=== PATIENT | female | born 1980 | race African-American/Black ===

== ENCOUNTER 2016-09-22 16:26 | Emergency (ER) | payer MEDICAID ==
[2016-09-22] MEDS ORDERED: predniSONE 20 MG TABLET PO STA (16:41)
[2016-09-22] MEDS ORDERED: HYDROcod/ACETAM 5/325 MG TABLET PO STA (16:41)
[2016-09-22] MEDS ORDERED: HYDROcod/ACETAM 5/325 MG TABLET ONE (16:44)
[2016-09-22] MEDS ORDERED: predniSONE 20 MG TABLET ONE (16:44)
== END 2016-09-22 16:54 | disposition home or self-care (01) ==
DX: M54.41 Lumbago with sciatica, right side (principal); M48.06 Spinal stenosis, lumbar region; R03.0 Elevated blood-pressure reading, without diagnosis of hypertension; M79.7 Fibromyalgia
CPT/HCPCS: 99283; A9270; J7512

== ENCOUNTER 2017-03-23 20:50 | Emergency (ER) | payer SELFPAY ==
[2017-03-23] MEDS ORDERED: HYDROmorphone 1 MG/ML SYRINGE IM STA (21:21)
[2017-03-23] MEDS ORDERED: DEXAMETHASONE 10 MG/ML VIAL PO STA (21:22)
[2017-03-23] MEDS ORDERED: diazePAM INJ 5 MG/ML SYRINGE IM STA (21:22)
[2017-03-23] MEDS ORDERED: HYDROmorphone 1 MG/ML SYRINGE ONE (21:32)
[2017-03-23] MEDS ORDERED: DEXAMETHASONE 10 MG/ML VIAL ONE (21:33)
[2017-03-23] MEDS ORDERED: CHERRY SYRUP 10 ML UDC PO ONE (21:33)
[2017-03-23] MEDS ORDERED: diazePAM INJ 5 MG/ML SYRINGE ONE (21:33)
--- NOTE | 2017-03-23 21:34 | ED Physician Documentation ---
PD HPI BACK PAIN - Stated complaint Stated Complaint: NECK/BACK PX - Chief complaint Chief Complaint: Back Pain - History obtained from History obtained from: Patient, Family - History of Present Illness Timing - onset: Chronic (worse for the past several days) Timing - duration: Years Timing - details: Gradual onset Pain level max: 9 Pain level now: 9 Location: Mid, Lower, Right, Left Quality: Pain, Spasm, Similar to prior episodes Associated symptoms: No: Fever, Weakness, Numbness, Incontinent of urine, Unable to urinate, Hematuria, Incontinent of stool Improves with: Rest Worsened by: Movement Contributing factors: No: Lifting, Twisting, Trauma, Anticoagulated, Cancer, IVDA Similar symptoms before: Diagnosis (spinal stenosis, bulging discs) Recently seen: Not recently seen Review of Systems Constitutional: denies: Fever, Chills Nose: denies: Rhinorrhea / runny nose, Congestion Throat: denies: Sore throat Cardiac: denies: Chest pain / pressure Respiratory: denies: Cough GI: denies: Abdominal Pain, Nausea, Vomiting, Diarrhea : denies: Dysuria, Frequency, Hesitancy Skin: denies: Rash Musculoskeletal: denies: Neck pain Neurologic: denies: Focal weakness, Numbness, Confused, Altered mental status, Headache PD PAST MEDICAL HISTORY - Past Medical History Past Medical History: Yes Cardiovascular: None Respiratory: Asthma Neuro: Headache/migraine Endocrine/Autoimmune: None GI: None 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 : None HEENT: Chronic sinusitis Psych: Anxiety Musculoskeletal: Fibromyalgia, Chronic back pain Derm: None - Past Surgical History Past Surgical History: Yes General: Appendectomy /PLATEMAKER: Tubal ligation, Hysterectomy - Present Medications Home Medications: Ambulatory Orders Medication Instructions Recorded Confirmed Cyclobenzaprine [Flexeril] 10 mg PO .FREQ PRN 09/22/16 03/23/17 Ibuprofen [Motrin] 800 mg PO .FREQ 09/22/16 03/23/17 Oxycodone HCl/Acetaminophen 1 - 2 each PO Q6H PRN #14 tablet 03/23/17 [Percocet 5-325 mg Tablet] Pregabalin [Lyrica] 75 mg PO BID #30 capsule 03/23/17 diazePAM [Valium] 5 - 10 mg PO TID PRN #15 tablet 03/23/17 - Allergies Allergies/Adverse Reactions: Allergies Allergy/AdvReac Type Severity Reaction Status Date / Time Sulfa (Sulfonamide Allergy Intermediate Rash Verified 03/23/17 20:56 Antibiotics) doxycycline AdvReac Intermediate other Verified 03/23/17 20:56 - Social History Does the pt smoke?: No Smoking Status: Never smoker Does the pt drink ETOH?: Yes Does the pt have substance abuse?: Yes Substance Use and Type: Marijuana - Immunizations Immunizations are current?: Yes - POLST Patient has POLST: No PD ED PE NORMAL - Vitals Vital signs reviewed: Yes - General General: Alert and oriented X 3, No acute distress, Well developed/nourished - HEENT HEENT: Atraumatic, PERRL, Ears normal, Moist mucous membranes, Pharynx benign - Neck Neck: Supple, no meningeal sign, No bony TTP - Cardiac Cardiac: RRR, Strong equal pulses - Respiratory Respiratory: No respiratory distress, Clear bilaterally - Back Back: No CVA TTP, Other (Diffuse paraspinal muscle spasm. No midline tenderness to palpation or percussion.) - Derm Derm: Warm and dry, No rash - Extremities Extremities: Other (normal bilateral lower extremity patellar and ankle jerk reflexes. 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, No motor deficit, No sensory deficit, Normal speech - Psych Psych: Normal mood, Normal affect Results - Vitals Vitals: Vital Signs - 24 hr 03/23/17 03/23/17 03/23/17 20:52 21:57 22:38 Temperature 36.8 C Heart Rate 89 96 84 Respiratory 18 20 18 Rate Blood Pressure 124/74 116/68 O2 Saturation 98 99 96 Oxygen O2 Source Room air PD MEDICAL DECISION MAKING - ED course Complexity details: reviewed results, re-evaluated patient, considered differential (no cauda equina, no spinal epidural abscess, no fracture, no aortic dissection or evidence of aneursym rupture), d/w patient, d/w family ED course: Patient is a 36-year-old female who presents to the emergency department with acute on chronic back pain. Pain is well controlled in the emergency department and she feels much better. She does have a history of fibromyalgia as well and will trial her on Lyrica to see if this helps her pain. She is very well-appearing, nontoxic. Afebrile. No evidence of cauda equina, epidural abscess or fracture. We will trial him a small amount of pain medication and muscle relaxants for home as well. Patient counseled regarding signs and symptoms for which I believe and urgent re-evaluation would be necessary. Patient with good understanding of and agreement to plan and is comfortable going home at this time This document was made in part using voice recognition software. While efforts are made to proofread this document, sound alike and grammatical errors may occur. Departure - Departure Disposition: Home, Self Care Clinical Impression: Back pain Qualifiers: Back pain location: back pain in unspecified location Chronicity: chronic Back pain laterality: bilateral Qualified Code(s): M54.9 - Dorsalgia, unspecified Condition: Good Instructions: ED Back Care Tips, ED Neck Back Pain General Follow-Up: Nicole Erickson MD [Primary Care Provider] - Within 1 week Prescriptions: Pregabalin [Lyrica] 75 mg PO BID #30 capsule Oxycodone HCl/Acetaminophen [Percocet 5-325 mg Tablet] 1 - 2 each PO Q6H PRN # 14 tablet PRN Reason: pain diazePAM [Valium] 5 - 10 mg PO TID PRN #15 tablet PRN Reason: Spasms Comments: You may want to talk to your doctor about a referral to a flexographic printing machinist who may be able to help with your back pain. Return if you worsen. The lyrica should be titrated up with your doctor after a week or two. Do not drink alcohol or drive while on narcotic pain medicine. Note that many narcotic pain relievers also contain tylenol/acetaminophen. Please ensure that your total dose of acetaminophen from all sources does not exceed 3 grams (3000mg) per day. You may constipated on this medication, take a stool softener such as "Colace" twice a day while you are on it. Also recommend a reyp-cle-ewjftvo laxative such as senna or MiraLAX any day that you do not have a bowel movement. If you received narcotic pain medication in the emergency department, do not drive or operate machinery for the next 24 hours. Discharge Date/Time: 03/23/17 22:38
[2017-03-23 22:39] VITALS: BP 116/68
== END 2017-03-23 22:38 | disposition home or self-care (01) ==
LOC: ED 20:50
DX: M54.9 Dorsalgia, unspecified (principal); G89.29 Other chronic pain; M54.2 Cervicalgia; M79.7 Fibromyalgia
CPT/HCPCS: 96372; 99283; A9270; J1170

== ENCOUNTER 2017-05-12 20:23 | Emergency (ER) | payer SELFPAY ==
[2017-05-12] MEDS ORDERED: HYDROmorphone 1 MG/ML SYRINGE IM STA (21:05)
[2017-05-12] MEDS ORDERED: diazePAM INJ 5 MG/ML SYRINGE IM STA (21:05)
[2017-05-12] MEDS ORDERED: DEXAMETHASONE 10 MG/ML VIAL PO STA (21:05)
--- NOTE | 2017-05-12 21:06 | ED Physician Documentation ---
PD HPI BACK PAIN - Stated complaint Stated Complaint: LOW BACK PX - Chief complaint Chief Complaint: Back Pain - History obtained from History obtained from: Patient, Friend - History of Present Illness Timing - onset: How many days ago (several) Timing - duration: Days Timing - details: Gradual onset, Waxing and waning Pain level max: 8 Pain level now: 8 Location: Lower, Right Quality: Spasm, Similar to prior episodes Associated symptoms: No: Fever, Weakness, Numbness, Incontinent of urine, Unable to urinate, Hematuria, Incontinent of stool Improves with: Rest Worsened by: Movement, Other (walking) Similar symptoms before: Diagnosis (sciatica) Recently seen: Not recently seen Review of Systems Constitutional: denies: Fever, Chills GI: denies: Nausea, Vomiting : denies: Dysuria, Frequency, Incontinent, Now EGA Skin: denies: Rash Neurologic: denies: Focal weakness, Numbness PD PAST MEDICAL HISTORY - Past Medical History Past Medical History: Yes Cardiovascular: None Respiratory: Asthma Neuro: Headache/migraine Endocrine/Autoimmune: None GI: None 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 : None HEENT: Chronic sinusitis Psych: None Musculoskeletal: Fibromyalgia Derm: None - Past Surgical History Past Surgical History: Yes General: Appendectomy /ADULT EDUCATOR: Tubal ligation, Hysterectomy - Present Medications Home Medications: Ambulatory Orders Medication Instructions Recorded Confirmed Cyclobenzaprine [Flexeril] 10 mg PO TID PRN #20 tablet 05/12/17 Oxycodone HCl/Acetaminophen 1 - 2 each PO Q6H PRN #14 tablet 05/12/17 [Percocet 5-325 mg Tablet] Pregabalin [Lyrica] 75 mg PO BID #60 capsule 05/12/17 - Allergies Allergies/Adverse Reactions: Allergies Allergy/AdvReac Type Severity Reaction Status Date / Time Sulfa (Sulfonamide Allergy Intermediate Rash Verified 05/12/17 20:31 Antibiotics) doxycycline AdvReac Intermediate other Verified 05/12/17 20:31 - Social History Does the pt smoke?: No Smoking Status: Never smoker Does the pt drink ETOH?: Yes Does the pt have substance abuse?: No - Immunizations Immunizations are current?: Yes - POLST Patient has POLST: No PD ED PE NORMAL - Vitals Vital signs reviewed: Yes - General General: Alert and oriented X 3, No acute distress - Neck Neck: Supple, no meningeal sign, No bony TTP - Cardiac Cardiac: RRR, Strong equal pulses - Respiratory Respiratory: No respiratory distress, Clear bilaterally - Back Back: No CVA TTP, No spinal TTP, Other (Mild paraspinal tenderness, right low lumbar. No midline tenderness to palpation or percussion) - Derm Derm: Warm and dry - Extremities Extremities: Normal ROM s pain, No calf tenderness / cord, Other (normal bilateral lower extremity patellar and ankle jerk reflexes. Normal great toe extension bilaterally) - Neuro Neuro: Alert and oriented X 3, No motor deficit, No sensory deficit - Psych Psych: Normal mood, Normal affect Results - Vitals Vitals: Vital Signs - 24 hr 05/12/17 05/12/17 20:25 21:42 Temperature 36.3 C L 36.9 C Heart Rate 99 79 Respiratory 16 18 Rate Blood Pressure 119/74 120/72 O2 Saturation 98 98 Oxygen O2 Source Room air PD MEDICAL DECISION MAKING - ED course Complexity details: reviewed old records, reviewed results, re-evaluated patient , considered differential (no cauda equina, no spinal epidural abscess, no fracture, no aortic dissection or evidence of aneursym rupture), d/w patient ED course: Patient is a 37-year-old female who presents to the emergency department with what appears to be right-sided low back pain, consistent with her history of low back pain and sciatica. Pain well controlled here. Ambulating well. Will prescribe pain medication for home and follow-up with her doctor. Patient counseled regarding signs and symptoms for which I believe and urgent re- evaluation would be necessary. Patient with good understanding of and agreement to plan and is comfortable going home at this time This document was made in part using voice recognition software. While efforts are made to proofread this document, sound alike and grammatical errors may occur. Departure - Departure Disposition: Home, Self Care Clinical Impression: Sciatica Qualifiers: Laterality: right Qualified Code(s): M54.31 - Sciatica, right side Condition: Good Instructions: ED Sciatica Follow-Up: Nicole Erickson MD [Primary Care Provider] - Within 1 week Prescriptions: Cyclobenzaprine [Flexeril] 10 mg PO TID PRN #20 tablet PRN Reason: Spasms Pregabalin [Lyrica] 75 mg PO BID #60 capsule Oxycodone HCl/Acetaminophen [Percocet 5-325 mg Tablet] 1 - 2 each PO Q6H PRN # 14 tablet PRN Reason: pain Comments: Return if you worsen. Do not drink alcohol or drive while on narcotic pain medicine. Note that many narcotic pain relievers also contain tylenol/acetaminophen. Please ensure that your total dose of acetaminophen from all sources does not exceed 3 grams (3000mg) per day. You may constipated on this medication, take a stool softener such as "Colace" twice a day while you are on it. Also recommend a [id number] laxative such as senna or MiraLAX any day that you do not have a bowel movement. If you received narcotic pain medication in the emergency department, do not drive or operate machinery for the next 24 hours. Discharge Date/Time: 05/12/17 21:42
[2017-05-12] MEDS ORDERED: HYDROmorphone 1 MG/ML SYRINGE ONE (21:16)
[2017-05-12] MEDS ORDERED: DEXAMETHASONE 10 MG/ML VIAL ONE (21:17)
[2017-05-12] MEDS ORDERED: diazePAM INJ 5 MG/ML SYRINGE ONE (21:17)
[2017-05-12] MEDS ORDERED: ONDANSETRON ODT 4 MG TABLET TL STA (21:36)
[2017-05-12] MEDS ORDERED: ONDANSETRON ODT 4 MG TABLET ONE (21:42)
[2017-05-12 21:43] VITALS: BP 120/72
== END 2017-05-12 21:42 | disposition home or self-care (01) ==
LOC: ED 20:23
DX: M54.31 Sciatica, right side (principal); J45.909 Unspecified asthma, uncomplicated; M79.7 Fibromyalgia
CPT/HCPCS: 96372; 99283; J1170; Q0162

== ENCOUNTER 2018-02-09 17:15 | Emergency (ER) | payer OTHER ==
[2018-02-09] MEDS ORDERED: HYDROmorphone 2 MG/ML VIAL IM STA (17:30)
[2018-02-09] MEDS ORDERED: ONDANSETRON ODT 4 MG TABLET TL STA (17:30)
[2018-02-09] MEDS ORDERED: DEXAMETHASONE 10 MG/ML VIAL PO STA (17:30)
--- NOTE | 2018-02-09 17:34 | ED Physician Documentation ---
PD HPI BACK PAIN - Stated complaint Stated Complaint: BACK/HIP PX - Chief complaint Chief Complaint: Back Pain - History obtained from History obtained from: Patient, Family - History of Present Illness Timing - onset: How many weeks ago (2) Timing - duration: Weeks (2) Timing - details: Gradual onset, Still present Location: Lower, Right, Left Quality: Pain, Spasm, Sharp, Similar to prior episodes Associated symptoms: No: Fever, Weakness, Numbness, Incontinent of urine, Unable to urinate, Hematuria, Incontinent of stool Improves with: Rest, Ice, Position, Meds Worsened by: Movement Contributing factors: Other (long plane trip) Similar symptoms before: Diagnosis (sciatica) Recently seen: Not recently seen - Additional information Additional information: 37-year-old female with a history of spinal stenosis and sciatica when a long plane trip to the [facility] and she began to experience some pain in her lower back that she has not been able to effectively get control of. She notes usually gets symptoms of sciatica on the right side she has symptoms on the left side and the right side today. She has been prescribed pain medication and muscle relaxant by her primary care doctor and this has been ineffective at pain control. Review of Systems Constitutional: denies: Fever Nose: reports: Rhinorrhea / runny nose, Congestion Throat: reports: Sore throat Respiratory: reports: Cough GI: denies: Nausea, Vomiting : denies: Dysuria, Frequency Skin: denies: Rash Musculoskeletal: reports: Back pain. 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 : None HEENT: Chronic sinusitis Psych: None Musculoskeletal: Fibromyalgia Derm: None - Past Surgical History Past Surgical History: Yes General: Appendectomy /ETHNOLOGY TEACHER: Tubal ligation, Hysterectomy - Present Medications Home Medications: Ambulatory Orders Medication Instructions Recorded Confirmed Cyclobenzaprine [Flexeril] 10 mg PO TID PRN #20 tablet 05/12/17 Oxycodone HCl/Acetaminophen 1 - 2 each PO Q6H PRN #14 tablet 05/12/17 [Percocet 5-325 mg Tablet] Pregabalin [Lyrica] 75 mg PO BID #60 capsule 05/12/17 Amox/Clav 875/125 [Augmentin] 1 each PO Q12H #20 tablet 02/09/18 HYDROcod/ACETAM 5/325 [[place] 5/325] 1 - 2 ea PO Q6H PRN #15 tablet 02/09/18 - Allergies Allergies/Adverse Reactions: Allergies Allergy/AdvReac Type Severity Reaction Status Date / Time Sulfa (Sulfonamide Allergy Intermediate Rash Verified 05/12/17 20:31 Antibiotics) doxycycline AdvReac Intermediate other Verified 05/12/17 20:31 - Social History Does the pt smoke?: No Smoking Status: Never smoker Does the pt drink ETOH?: Yes Does the pt have substance abuse?: No - Immunizations Immunizations are current?: Yes - POLST Patient has POLST: No PD ED PE NORMAL - Vitals Vital signs reviewed: Yes - General General: Alert and oriented X 3, Well developed/nourished, Other (The patient has bell maker tone, flat affect and tears to express pain. She looks miserable) - HEENT HEENT: Atraumatic, PERRL, EOMI, Other (TM's are erythematous bilaterally with flatening of pablo landmarks. ) - Neck Neck: Supple, no meningeal sign, No bony TTP - Cardiac Cardiac: RRR, No murmur - Respiratory Respiratory: No respiratory distress, Clear bilaterally - Abdomen Abdomen: Soft, Non tender - Back Back: No CVA TTP, Other (There is point tenderness to the lower lumbar spine and extending into the sciatic notch bilaterally ) - Derm Derm: Normal color, Warm and dry, No rash - Extremities Extremities: No deformity, No edema - Neuro Neuro: Alert and oriented X 3, No motor deficit, No sensory deficit, Normal speech Eye Opening: Spontaneous Motor: Obeys Commands Verbal: Oriented GCS Score: 15 - Psych Psych: Normal mood, Normal affect Results - Vitals Vitals: Vital Signs - 24 hr 02/09/18 02/09/18 17:20 18:39 Temperature 37 C 36.8 C Heart Rate 100 88 Respiratory 18 18 Rate Blood Pressure 90/63 102/62 O2 Saturation 97 100 Oxygen O2 Source Room air PD MEDICAL DECISION MAKING - ED course Complexity details: considered differential, d/w patient, d/w family ED course: 37 y/o female with a history of sciatica has been on a plane trip and has severe lower back spasms with bilateral sciatica. She is in a pain crisis when she arrives and she is administered decadron PO and IM dilaudid and tl zofran. On exam today she has BOM consistent with her history of sore throat and cough as well. - Sepsis Event Vital Signs: Vital Signs - 24 hr 02/09/18 02/09/18 17:20 18:39 Temperature 37 C 36.8 C Heart Rate 100 88 Respiratory 18 18 Rate Blood Pressure 90/63 102/62 O2 Saturation 97 100 Oxygen O2 Source Room air Departure - Departure Disposition: 01 Home, Self Care Clinical Impression: Sciatica Qualifiers: Laterality: bilateral Qualified Code(s): M54.31 - Sciatica, right side Otitis media Qualifiers: Otitis media type: suppurative Chronicity: acute Laterality: bilateral Recurrence: not specified as recurrent Spontaneous tympanic membrane rupture: without spontaneous rupture Qualified Code(s): H66.003 - Acute suppurative otitis media without spontaneous rupture of ear drum, bilateral Condition: Stable Instructions: ED Otitis Media Acute Adult, ED Sciatica Follow-Up: Vasiliy Mcgowan MD [Primary Care Provider] - Prescriptions: Amox/Clav 875/125 [Augmentin] 1 each PO Q12H #20 tablet HYDROcod/ACETAM 5/325 [[place] 5/325] 1 - 2 ea PO Q6H PRN #15 tablet PRN Reason: Pain Discharge Date/Time: 02/09/18 18:39
[2018-02-09] MEDS ORDERED: CHERRY SYRUP 10 ML UDC PO ONE (17:47)
[2018-02-09 18:41] VITALS: BP 102/62
== END 2018-02-09 18:39 | disposition home or self-care (01) ==
LOC: ED 17:15
DX: M54.31 Sciatica, right side (principal); H66.003 Acute suppurative otitis media without spontaneous rupture of ear drum, bilateral; M79.7 Fibromyalgia
CPT/HCPCS: 96372; 99283; A9270; J1170; Q0162

== ENCOUNTER 2018-02-16 10:41 | Emergency (ER) | payer OTHER ==
[2018-02-16] MEDS ORDERED: KETOROLAC 60 MG/2 ML VIAL IVP STA (12:14)
[2018-02-16] MEDS ORDERED: diphenhydrAMINE INJ 50 MG/ML VIAL IVP STA (12:14)
[2018-02-16] MEDS ORDERED: PROMETHAZINE INJ 25 MG in SODIUM CHLORIDE 0.9% 50 ML IV STA (12:14)
[2018-02-16] MEDS ORDERED: SODIUM CHLORIDE 0.9% 1,000 ML IV ONE (12:14)
--- NOTE | 2018-02-16 12:24 | ED Physician Documentation ---
PD HPI BACK PAIN - Stated complaint Stated Complaint: BACK PX - Chief complaint Chief Complaint: Back Pain - History obtained from History obtained from: Patient, Family - History of Present Illness Timing - onset: Chronic Timing - details: Gradual onset Pain level max: 10 Pain level now: 10 Location: Lower Quality: Pain, Spasm, Similar to prior episodes Associated symptoms: No: Fever, Weakness, Numbness, Incontinent of urine, Unable to urinate, Hematuria, Incontinent of stool Improves with: Rest Worsened by: Movement Contributing factors: Other (states worsened after a recent trip to [place]) Similar symptoms before: Diagnosis (chronic back pain) Recently seen: Emergency Dept (her PCP 2 weeks ago and here 1 week ago, states worsening since that time.) Review of Systems Ten Systems: 10 systems reviewed and negative Constitutional: denies: Fever, Chills Ears: denies: Ear pain Nose: denies: Rhinorrhea / runny nose, Congestion Respiratory: denies: Cough GI: reports: Nausea, Vomiting (states that pain is making her nauseated and vomit). denies: Diarrhea : denies: Dysuria, Frequency, Hesitancy, Unable to Void, Incontinent Skin: denies: Rash Musculoskeletal: denies: Neck pain Neurologic: denies: Focal weakness, Numbness, Headache PD PAST MEDICAL HISTORY - Past Medical History Past Medical History: Yes Cardiovascular: None Respiratory: Asthma Endocrine/Autoimmune: None GI: None CNA GNA: Ovarian cysts : None HEENT: Chronic sinusitis Psych: None Musculoskeletal: Fibromyalgia, Chronic back pain Derm: None - Past Surgical History Past Surgical History: Yes General: Appendectomy /CNA GNA: Tubal ligation, Hysterectomy - Present Medications Home Medications: Ambulatory Orders Medication Instructions Recorded Confirmed Cyclobenzaprine [Flexeril] 10 mg PO TID PRN #20 tablet 05/12/17 02/16/18 Pregabalin [Lyrica] 75 mg PO BID #60 capsule 05/12/17 02/16/18 Amox/Clav 875/125 [Augmentin] 1 each PO Q12H #20 tablet 02/09/18 02/16/18 HYDROcod/ACETAM 5/325 [[place] 5/325] 1 - 2 ea PO Q6H PRN #15 tablet 02/09/18 Cyclobenzaprine [Flexeril] 10 mg PO TID PRN #20 tablet 02/16/18 Meloxicam [Mobic] 15 mg PO DAILY PRN #20 tablet 02/16/18 Oxycodone HCl/Acetaminophen 1 - 2 each PO Q6H PRN #14 tablet 02/16/18 [Percocet 5-325 mg Tablet] predniSONE [Deltasone] 20 mg PO [id number] #21 tab 02/16/18 - Allergies Allergies/Adverse Reactions: Allergies Allergy/AdvReac Type Severity Reaction Status Date / Time Sulfa (Sulfonamide Allergy Intermediate Rash Verified 02/16/18 11:05 Antibiotics) doxycycline AdvReac Intermediate other Verified 02/16/18 11:05 - Social History Does the pt smoke?: No Smoking Status: Never smoker Does the pt drink ETOH?: Yes Does the pt have substance abuse?: No - Immunizations Immunizations are current?: Yes - POLST Patient has POLST: No PD ED PE NORMAL - Vitals Vital signs reviewed: Yes - General General: Alert and oriented X 3, Other (crying appears in pain) - HEENT HEENT: Ears normal, Moist mucous membranes, Pharynx benign - Neck Neck: Supple, no meningeal sign - Cardiac Cardiac: RRR - Respiratory Respiratory: No respiratory distress, Clear bilaterally - Abdomen Abdomen: Soft, Non tender, Non distended - Back Back: Other (low lumbar spine midline TTP. no step off or deformity) - Derm Derm: Warm and dry - Neuro Neuro: Alert and oriented X 3 Results - Vitals Vitals: Vital Signs - 24 hr 02/16/18 02/16/18 02/16/18 10:51 14:09 14:55 Temperature 37 C 36.9 C 36.8 C Heart Rate 120 H 104 H 88 Respiratory 20 12 12 Rate Blood Pressure 136/90 H 102/66 98/68 O2 Saturation 98 98 99 Oxygen O2 Source Room air - Labs Labs: Laboratory Tests 02/16/18 02/16/18 12:39 12:39 WBC 15.3 H RBC 4.83 Hgb 14.6 Hct 43.9 MCV 90.9 MCH 30.2 MCHC 33.2 RDW 13.5 Plt Count 264 MPV 8.5 Neut # (Auto) 14.1 H Lymph # (Auto) 0.6 L [place] # (Auto) 0.6 Eos # (Auto) 0.0 Baso # (Auto) 0.0 Absolute Nucleated RBC 0.00 Nucleated RBC % 0.0 Sodium 136 Potassium 3.6 Chloride 103 Carbon Dioxide 25 Anion Gap 8.0 BUN 8 Creatinine 0.6 Estimated GFR (MDRD) 136 Glucose 104 H Calcium 9.5 Total Bilirubin 1.1 H AST 15 ALT 17 Alkaline Phosphatase 63 Total Protein 8.2 Albumin 4.8 Globulin 3.4 Albumin/Globulin Ratio 1.4 Lipase 20 L - Rads (name of study) L spine xray Radiology: Prelim report reviewed, EMP read contemporaneously, See rad report ( no acute abnormality) PD MEDICAL DECISION MAKING - ED course Complexity details: reviewed old records, reviewed results, re-evaluated patient (Patient still having some pain, but states that she feels much better. Is no longer crying and is able to move well in the chair and able to stand and walk.), considered differential (no cauda equina, no spinal epidural abscess , no fracture, no aortic dissection or evidence of aneursym rupture), d/w patient ED course: Patient is a 37-year-old female with acute on chronic back pain. She is well- appearing, nontoxic. Afebrile. No IV drug use. No risk factors for epidural abscess. Feels much better after Toradol, Phenergan and Benadryl. Also given IV fluids. Vomiting resolved. Abdomen is soft, nontender nondistended on serial exam. No acute findings on x-ray. We will trial her on a steroid taper as well as anti-inflammatories and muscle relaxants for home. Will prescribe a small amount of narcotics. Has an appointment on with her doctor. Patient counseled regarding signs and symptoms for which I believe and urgent re -evaluation would be necessary. Patient with good understanding of and agreement to plan and is comfortable going home at this time This document was made in part using voice recognition software. While efforts are made to proofread this document, sound alike and grammatical errors may occur. - Sepsis Event Vital Signs: Vital Signs - 24 hr 02/16/18 02/16/18 02/16/18 10:51 14:09 14:55 Temperature 37 C 36.9 C 36.8 C Heart Rate 120 H 104 H 88 Respiratory 20 12 12 Rate Blood Pressure 136/90 H 102/66 98/68 O2 Saturation 98 98 99 Oxygen O2 Source Room air Departure - Departure Disposition: 01 Home, Self Care Clinical Impression: Back spasm Back pain Qualifiers: Back pain location: low back pain Chronicity: acute Back pain laterality: bilateral Sciatica presence: without sciatica Qualified Code(s): M54.5 - Low back pain Condition: Good Instructions: ED Sprain Strain Lumbar Follow-Up: Vasiliy Mcgowan MD [Primary Care Provider] - Within 1 week Prescriptions: Cyclobenzaprine [Flexeril] 10 mg PO TID PRN #20 tablet PRN Reason: Spasms Meloxicam [Mobic] 15 mg PO DAILY PRN #20 tablet PRN Reason: pain Oxycodone HCl/Acetaminophen [Percocet 5-325 mg Tablet] 1 - 2 each PO Q6H PRN # 14 tablet PRN Reason: pain predniSONE [Deltasone] 20 mg PO [id number] #21 tab Comments: Follow-up with your doctor on as scheduled. He will likely want to order an MRI on your back. Return if you worsen. Do not drink alcohol or drive while on narcotic pain medicine. Note that many narcotic pain relievers also contain tylenol/acetaminophen. Please ensure that your total dose of acetaminophen from all sources does not exceed 3 grams (3000mg) per day. You may constipated on this medication, take a stool softener such as "Colace" twice a day while you are on it. Also recommend a ozpr-hvd-jokbrdc laxative such as senna or MiraLAX any day that you do not have a bowel movement. If you received narcotic pain medication in the emergency department, do not drive or operate machinery for the next 24 hours. Discharge Date/Time: 02/16/18 14:57
[2018-02-16 12:43] LABS: BASOPHILS % (AUTO) 0.2 %; HGB - HEMOGLOBIN 14.6 g/dL (12.0-16.0); LYMPHOCYTES # (AUTO) 0.6 10^3/uL (1.5-3.5); LYMPHOCYTES % (AUTO) 4.1 %; MEAN CORPUSCULAR HEMOGLOBIN 30.2 pg (27.0-31.0); MEAN CORPUSCULAR HGB CONC 33.2 g/dL (32.0-36.0); MEAN CORPUSCULAR VOLUME 90.9 fL (81.0-99.0); MEAN PLATELET VOLUME 8.5 fL (7.9-10.8); MONOCYTES # (AUTO) 0.6 10^3/uL (0.0-1.0); MONOCYTES % (AUTO) 3.7 %; NEUTROPHILS # (AUTO) 14.1 10^3/uL (1.5-6.6); PLT - PLATELET COUNT 264 10^3/uL (130-450); RED BLOOD COUNT 4.83 10^6/uL (4.20-5.40); RED CELL DISTRIBUTION WIDTH 13.5 % (12.0-15.0); WHITE BLOOD COUNT 15.3 x10^3/uL (4.8-10.8)
[2018-02-16 12:56] LABS: ALBUMIN 4.8 g/dL (3.2-5.5); ALBUMIN/GLOBULIN RATIO 1.4 (1.0-2.2); BILIRUBIN,TOTAL 1.1 mg/dL (0.2-1.0); CALCIUM 9.5 mg/dL (8.5-10.3); CREATININE 0.6 mg/dL (0.4-1.0); TOTAL PROTEIN 8.2 g/dL (6.7-8.2)
--- NOTE | 2018-02-16 13:09 | XRAY Report ---
Procedure Date: 02/16/2018 Accession Number: [id number] / [id number] Procedure: XR - Lumbar Spine 2 View CPT Code: FULL RESULT: EXAM: LUMBOSACRAL SPINE RADIOGRAPHY EXAM DATE: 02/16/2018 12:57 PM. CLINICAL HISTORY: Low back pain, worsening, no trauma. COMPARISONS: 10/25/2009. TECHNIQUE: 2 views. FINDINGS: Alignment: Normal. No spondylolisthesis or scoliosis. Bones: Five rwz-pqn-lpatgyg lumbar vertebral bodies are present. No evidence of acute fracture. Disks: Normal. Disk heights are maintained. Facets: No degenerative changes. Sacroiliac Joints: Unremarkable. Soft Tissues: Unremarkable. IMPRESSION: Negative lumbar spine radiography. [facility]
[2018-02-16] MEDS ORDERED: DEXAMETHASONE 10 MG/ML VIAL PO STA (14:10)
[2018-02-16] MEDS ORDERED: CHERRY SYRUP 10 ML UDC PO ONE (14:36)
[2018-02-16 14:57] VITALS: BP 98/68
== END 2018-02-16 14:57 | disposition home or self-care (01) ==
LOC: ED 10:41
DX: M54.5 Low back pain (principal); M62.830 Muscle spasm of back; M79.7 Fibromyalgia
CPT/HCPCS: 36415; 72100; 80053; 83690; 85025; 96361; 96374; 96375; 99283; A9270; J1200; J7040

== ENCOUNTER 2018-10-14 11:10 | Outpatient (CLI) | payer OTHER ==
--- NOTE | 2018-10-14 16:03 | XRAY Report ---
Reason: PAIN IN LEFT SHOULDER Procedure Date: 10/14/2018 Accession Number: [id number] / [id number] Procedure: XR - Shoulder 3 View LT CPT Code: FULL RESULT: EXAM: LEFT SHOULDER RADIOGRAPHY EXAM DATE: 10/14/2018 11:57 AM. CLINICAL HISTORY: PAIN IN LEFT SHOULDER. COMPARISON: None. TECHNIQUE: 3 views. FINDINGS: Bones: No fracture or bone lesion. Joints: The glenohumeral and acromioclavicular joints are anatomically aligned. Soft tissues: The included hemithorax is unremarkable. No soft tissue calcification. IMPRESSION: Normal left shoulder radiography. [facility]
--- NOTE | 2018-10-14 16:18 | XRAY Report ---
Reason: PAIN IN LEFT SHOULDER,PAIN IN LEFT WRIST, PAIN IN Procedure Date: 10/14/2018 Accession Number: [id number] / [id number] Procedure: XR - Wrist 4 View LT CPT Code: FULL RESULT: EXAM: LEFT WRIST RADIOGRAPHY EXAM DATE: 10/14/2018 11:57 AM. CLINICAL HISTORY: PAIN IN LEFT SHOULDER,PAIN IN LEFT WRIST, COMPARISON: None. TECHNIQUE: 4 views. FINDINGS: Bones: No fractures or bone lesions. Joints: No subluxations. Soft Tissues: No soft tissue swelling. IMPRESSION: Normal left wrist radiography. [facility]
--- NOTE | 2018-10-14 16:21 | XRAY Report ---
Reason: PAIN IN LEFT SHOULDER,PAIN IN LEFT WRIST, PAIN IN Procedure Date: 10/14/2018 Accession Number: [id number] / [id number] Procedure: XR - Hand 3 View LT CPT Code: FULL RESULT: EXAM: LEFT HAND RADIOGRAPHY EXAM DATE: 10/14/2018 11:57 AM. CLINICAL HISTORY: PAIN IN LEFT Shoulder, pain IN LEFT WRIST and hand COMPARISON: None. TECHNIQUE: 3 views. FINDINGS: Bones: No fractures or bone lesions. Joints: No subluxations. Soft Tissues: No soft tissue swelling. IMPRESSION: Normal left hand radiography. [facility]
--- NOTE | 2018-10-14 16:21 | XRAY Report ---
Reason: PAIN TO LEFT ELBOW Procedure Date: 10/14/2018 Accession Number: [id number] / [id number] Procedure: XR - Elbow 2 View LT CPT Code: FULL RESULT: EXAM: LEFT ELBOW RADIOGRAPHY EXAM DATE: 10/14/2018 11:57 AM. CLINICAL HISTORY: PAIN TO LEFT ELBOW. COMPARISON: None. TECHNIQUE: 2 views. FINDINGS: Bones: No fractures or bone lesions. Joints: No effusion. No subluxation. Soft Tissues: No soft tissue swelling. IMPRESSION: Normal left elbow radiography. [facility]
== END 2018-10-14 11:11 | disposition home or self-care (01) ==
LOC: DI 11:10
PROVIDERS: ATTEND Nurse Practitioner Family
DX: M25.522 Pain in left elbow (principal); M25.512 Pain in left shoulder; M25.532 Pain in left wrist

== ENCOUNTER 2019-07-18 16:20 | Emergency (ER) | payer OTHER ==
[2019-07-18] MEDS ORDERED: CYCLOBENZAPRINE 10 MG TABLET PO STA (16:37)
--- NOTE | 2019-07-18 16:39 | ED Physician Documentation ---
PD HPI CHEST PAIN - Stated complaint Stated Complaint: LT RIB PX - Chief complaint Chief Complaint: Back Pain - History obtained from History obtained from: Patient - History of Present Illness Timing - onset: Other (For the last 3 days she has had left rib pain, notes a sharp pain that is worse with deep breathing or movement. She feels like it is focused around the mid axillary line, may be rib 8. It radiates forward into the left breast. She denies shortness of breath, cough, calf pain, pedal edema. She had a remote hysterectomy. She traveled to [place] about a month and a half ago.) Review of Systems Constitutional: denies: Fever, Chills Cardiac: reports: Chest pain / pressure. 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 : None HEENT: Chronic sinusitis Psych: None Musculoskeletal: Fibromyalgia, Chronic back pain Derm: None - Past Surgical History Past Surgical History: Yes General: Appendectomy /CAN CUTTER: Tubal ligation, Hysterectomy - Present Medications Home Medications: Ambulatory Orders Medication Instructions Recorded Confirmed Cyclobenzaprine [Flexeril] 10 mg PO TID PRN #20 tablet 07/18/19 - Allergies Allergies/Adverse Reactions: Allergies Allergy/AdvReac Type Severity Reaction Status Date / Time Sulfa (Sulfonamide Allergy Intermediate Rash Verified 07/18/19 16:28 Antibiotics) doxycycline AdvReac Intermediate other Verified 07/18/19 16:28 - Social History Does the pt smoke?: No Smoking Status: Never smoker Does the pt drink ETOH?: Yes Does the pt have substance abuse?: No - Immunizations Immunizations are current?: Yes - POLST Patient has POLST: No PD ED PE NORMAL - Vitals Vital signs reviewed: Yes - General General: Alert and oriented X 3, No acute distress - HEENT HEENT: PERRL, EOMI - Neck Neck: Supple, no meningeal sign, No bony TTP - Cardiac Cardiac: RRR, No murmur - Respiratory Respiratory: No respiratory distress, Clear bilaterally, Other (Mild tenderness of the left chest wall laterally, no rash, no breast tenderness. That portion of the exam was done with Fartun OROZCO present.) - Abdomen Abdomen: Non tender - Extremities Extremities: No edema, No calf tenderness / cord - Neuro Neuro: Alert and oriented X 3, Normal speech Results - Vitals Vitals: Vital Signs - 24 hr 07/18/19 16:26 Temperature 37.2 C Heart Rate 79 Respiratory 20 Rate Blood Pressure 117/69 O2 Saturation 98 Oxygen O2 Source Room air - EKG (time done) 1641 Rate: Rate (enter#) (78) Rhythm: NSR [place]: Normal Intervals: Normal [place] QRS: Normal Ischemia: Normal ST segments - Labs Labs: Laboratory Tests 07/18/19 07/18/19 07/18/19 16:45 16:45 16:45 WBC 7.1 RBC 4.28 Hgb 12.6 Hct 40.0 MCV 93.5 MCH 29.4 MCHC 31.5 L RDW 12.9 Plt Count 276 MPV 10.6 Neut # (Auto) 3.9 Lymph # (Auto) 2.4 [place] # (Auto) 0.5 Eos # (Auto) 0.3 Baso # (Auto) 0.0 Absolute Nucleated RBC 0.00 Nucleated RBC % 0.0 D-Dimer 784.7 H Sodium 139 Potassium 3.8 Chloride 106 Carbon Dioxide 26 Anion Gap 7.0 BUN 9 Creatinine 0.9 Estimated GFR (MDRD) 84 L Glucose 109 H Calcium 9.4 Total Bilirubin 0.5 AST 17 ALT 16 Alkaline Phosphatase 66 Troponin I High Sens Total Protein 7.2 Albumin 4.4 Globulin 2.8 Albumin/Globulin Ratio 1.6 Lipase 25 07/18/19 16:45 WBC RBC Hgb Hct MCV MCH MCHC RDW Plt Count MPV Neut # (Auto) Lymph # (Auto) [place] # (Auto) Eos # (Auto) Baso # (Auto) Absolute Nucleated RBC Nucleated RBC % D-Dimer Sodium Potassium Chloride Carbon Dioxide Anion Gap BUN Creatinine Estimated GFR (MDRD) Glucose Calcium Total Bilirubin AST ALT Alkaline Phosphatase Troponin I High Sens 2.7 Total Protein Albumin Globulin Albumin/Globulin Ratio Lipase PD MEDICAL DECISION MAKING - ED course ED course: 39-year-old woman with what seems like musculoskeletal lateral left rib pain. Differential included PE, ACS. Work-up for ACS was negative but d-dimer was positive followed by CT pulmonary angiogram which was negative. Departure - Departure Disposition: 01 Home, Self Care Clinical Impression: Chest wall pain Condition: Good Record reviewed to determine appropriate education?: Yes Instructions: ED Strain Chest Wall Prescriptions: Cyclobenzaprine [Flexeril] 10 mg PO TID PRN #20 tablet PRN Reason: Spasms Comments: Call your doctor to arrange a follow-up appointment, make the next available appointment. In the interim, return anytime if worse or if new symptoms develop.
[2019-07-18 17:03] LABS: ALBUMIN 4.4 g/dL (3.2-5.5); ALBUMIN/GLOBULIN RATIO 1.6 (1.0-2.2); BILIRUBIN,TOTAL 0.5 mg/dL (0.2-1.0); CALCIUM 9.4 mg/dL (8.5-10.3); CREATININE 0.9 mg/dL (0.4-1.0); TOTAL PROTEIN 7.2 g/dL (6.7-8.2)
[2019-07-18 17:09] LABS: BASOPHILS % (AUTO) 0.6 %; EOSINOPHILS # (AUTO) 0.3 10^3/uL (0.0-0.7); EOSINOPHILS % (AUTO) 3.7 %; HGB - HEMOGLOBIN 12.6 g/dL (12.0-16.0); LYMPHOCYTES # (AUTO) 2.4 10^3/uL (1.5-3.5); LYMPHOCYTES % (AUTO) 33.2 %; MEAN CORPUSCULAR HEMOGLOBIN 29.4 pg (27.0-31.0); MEAN CORPUSCULAR HGB CONC 31.5 g/dL (32.0-36.0); MEAN CORPUSCULAR VOLUME 93.5 fL (81.0-99.0); MEAN PLATELET VOLUME 10.6 fL (7.9-10.8); MONOCYTES # (AUTO) 0.5 10^3/uL (0.0-1.0); NEUTROPHILS # (AUTO) 3.9 10^3/uL (1.5-6.6); NEUTROPHILS % (AUTO) 55.4 %; PLT - PLATELET COUNT 276 10^3/uL (130-450); RED BLOOD COUNT 4.28 10^6/uL (4.20-5.40); RED CELL DISTRIBUTION WIDTH 12.9 % (12.0-15.0); WHITE BLOOD COUNT 7.1 x10^3/uL (4.8-10.8)
[2019-07-18] MEDS ORDERED: IOVERSOL 320 100 ML VIAL IVP ONE ×2 (17:15→17:41)
--- NOTE | 2019-07-18 17:21 | XRAY Report ---
Reason: left chest pain Procedure Date: 07/18/2019 Accession Number: [id number] / [id number] Procedure: XR - Chest 2 View X-Ray CPT Code: 89999 Final Report FULL RESULT: EXAM: CHEST RADIOGRAPHY EXAM DATE: 07/18/2019 04:53 PM. CLINICAL HISTORY: Left chest pain. COMPARISON: CHEST 2 VIEW PA/LAT 09/14/2014 1:32 AM. TECHNIQUE: 2 views. FINDINGS: Lungs/Pleura: No focal opacities evident. No pleural effusion. No pneumothorax. Normal volumes. Mediastinum: Heart and mediastinal contours are unremarkable. Other: None. IMPRESSION: No acute cardiopulmonary process. [facility]
--- NOTE | 2019-07-18 18:06 | CT Report ---
Reason: PE protocol, chest pain Procedure Date: 07/18/2019 Accession Number: [id number] / [id number] Procedure: CT - ANGIO CHEST W/WO CPT Code: Final Report FULL RESULT: EXAM: CT ANGIOGRAM CHEST EXAM DATE: 07/18/2019 05:38 PM. CLINICAL HISTORY: PE protocol, chest pain. COMPARISON: None. TECHNIQUE: Routine helical imaging was performed through the chest in the pulmonary arterial phase. IV Contrast: OPTI 320 80ML. Reconstructions: Coronal 3-D MIP reconstructions.Sagittal and coronal. In accordance with CT protocol optimization, one or more of the following dose reduction techniques were utilized for this exam: automated exposure control, adjustment of mA and/or KV based on patient size, or use of iterative reconstructive technique. FINDINGS: Pulmonary Arteries: Diagnostic quality: Adequate through the segmental arteries. No evidence for acute or chronic pulmonary emboli. RV/LV is within normal limits. There is no interventricular septal bowing. There is no reflux of contrast material in the IVC. Lungs/Pleura: No consolidation, nodules, or edema. No effusions or pneumothorax. Mediastinum: Normal. No cardiac enlargement or adenopathy. Thoracic Aorta: Unremarkable. Upper Abdomen: Unremarkable. Other: None. IMPRESSION: Normal pulmonary CT angiogram. No pulmonary emboli. [facility]
[2019-07-18] MEDS ORDERED: HYDROcod/ACET 5/325 Prepack 4 PO STA (18:14)
[2019-07-18 18:31] VITALS: BP 102/73
== END 2019-07-18 18:35 | disposition home or self-care (01) ==
LOC: ED 16:20
DX: R07.89 Other chest pain (principal); R79.89 Other specified abnormal findings of blood chemistry
CPT/HCPCS: 36415; 71046; 71275; 80053; 83690; 84484; 85025; 85379; 93005; 99283; 99284; A9270; Q9967